=== PATIENT | female | born 1990 | race Two or more races ===

== ENCOUNTER 2023-09-07 18:08 | Emergency (ER) | payer MEDICAID, OTHER ==
[~2023-09-07] VITALS: Ht 170.2 cm; Wt 106.1 kg
[2023-09-07 18:10] VITALS: BP 153/88; PULSE 63; RESP 18; TEMP 97.6
[2023-09-07 19:00] VITALS: O2SAT 98
[2023-09-07] MEDS ORDERED: FAMOTIDINE 20 MG TAB PO ONE (19:00)
[2023-09-07] MEDS ORDERED: diphenhdrAMINE HCL 50 MG/1 ML VL IM ONE (19:00)
[2023-09-07] MEDS ORDERED: DexAMETHasone SOD PHOS 10MG/1ML VIAL INJ IM ONE (19:00)
[2023-09-07] MEDS ORDERED: EPINEPHrine HCL 1 MG/1 ML AMP IM ONE (19:45)
[2023-09-07] MEDS ORDERED: PRED20TA2 PO (21:20)
[2023-09-07] MEDS ORDERED: FAMO20TA10 PO (21:20)
[2023-09-07] MEDS ORDERED: DIPH25CA66 PO (21:20)
[2023-09-08] MEDS ORDERED: CEPH250C PO (20:00)
== END 2023-09-07 22:05 | disposition home or self-care (01) ==
LOC: ER 18:08
DX: T78.49XA Other allergy, initial encounter (principal); Z88.8 Allergy status to other drugs, medicaments and biological substances; X58.XXXA Exposure to other specified factors, initial encounter
CPT/HCPCS: 96372; 99284; J0171; J1100; J1200

== ENCOUNTER 2023-09-08 12:19 | Emergency (ER) | payer MEDICAID ==
[~2023-09-08] VITALS: Ht 157.5 cm; Wt 100.0 kg
[~2023-09-08 12:19] MED LIST: DIPH25CA66 PO; FAMO20TA10 PO; PRED20TA2 PO
[2023-09-08 13:07] VITALS: PULSE 77; RESP 12; O2SAT 100
[2023-09-08] MEDS ORDERED: KETOROLAC TROMETH 30 MG/ML 1ML VIAL IV ONE ×2 (13:30→20:15)
[2023-09-08] MEDS ORDERED: SODIUM CHLORIDE 0.9% 1,000 ML IVB ONE (13:30)
[2023-09-08] MEDS ORDERED: ONDANSETRON HCL 4 MG/2 ML VIAL IV ONE (13:30)
[2023-09-08 13:53] LABS: Basophils # (auto) 0 10 ^3/uL (0-0.2); Eosinophils # (auto) 0 10 ^3/uL (0-0.8); Hemoglobin 13.3 g/dL (12.2-16.2); Lymphocytes # (auto) 1.5 10 ^3/uL (0.4-5.4); Monocytes # (auto) 0.3 10 ^3/uL (0-1.3); Nucleated Red Blood Cells % 0.1 %
[2023-09-08 13:55] LABS: Basophils % (auto) 0.1 % (0.0-2.0); Hematocrit 40.2 % (36.0-46.0); Lymphocytes % (auto) 13.8 % (10.0-50.0); Mean Corpuscular Hgb Conc. 32.9 g/dL (32.0-36.0); Mean Corpuscular Volume 78.8 fL (80.0-100.0); Monocytes % (auto) 2.9 % (0.0-12.0); Neutrophils % (auto) 83.2 % (37.0-80.0); Red Blood Cells 5.11 10^6/uL (4.0-5.20); Red Cell Distribution Width 13.3 % (11.8-14.3); White Blood Cell 10.8 10^3/uL (4.4-10.8)
[2023-09-08 14:37] LABS: Alanine Aminotransferase 15 U/L (7-40); Albumin 4.7 g/dL (3.2-4.8); Alkaline Phosphatase 62 U/L (46-116); Anion Gap 11 (5-15); Aspartate Aminotransferase 14 U/L (13-40); BUN/Creatinine Ratio 11.6 (10.0-20.0); Bilirubin, Total 0.8 mg/dL (0.2-1.0); Blood Urea Nitrogen 10 mg/dL (9-23); Calcium 9.3 mg/dL (8.7-10.4); Carbon Dioxide 20 mmol/L (20-30); Chloride 107 mmol/L (98-107); Glucose 89 mg/dL (74-106); Magnesium 2.1 mg/dL (1.6-2.6); Potassium 3.9 mmol/L (3.5-5.1); Sodium 138 mmol/L (136-145); Total Protein 7.9 g/dL (5.7-8.2)
[2023-09-08] MEDS ORDERED: HYDROcodone-ACET 5/325MG TAB PO ONE (15:15)
[2023-09-08 19:40] VITALS: RESP 19; O2SAT 98
[2023-09-08 19:44] LABS: Urine Bacteria FEW /hpf (None Seen); Urine Blood 2+ /uL (Negative); Urine Clarity HAZY (Clear); Urine Color Yellow (Yellow); Urine Mucus FEW (None Seen); Urine Protein, UAD TRACE (Negative); Urine Urobilinogen Normal (Negative); Urine WBC 205 /hpf (0 - 5); Urine pH 5.5 (5.0-8.0)
[2023-09-08] MEDS ORDERED: CEPH250C PO (20:00)
[2023-09-08] MEDS ORDERED: cefTRIAXone 1GM/50ML D5W 50 ML IV ONE (20:15)
[2023-09-08] MEDS ORDERED: cefTRIAXone W LIDOCAINE 1 GM IM IM ONE (20:15)
[2023-09-08 21:21] VITALS: PULSE 77; RESP 20; O2SAT 98
== END 2023-09-08 21:25 | disposition home or self-care (01) ==
LOC: ER 12:19 → EEVIPCON 12:19 → ER 21:25
DX: R55 Syncope and collapse (principal); R10.2 Pelvic and perineal pain; N39.0 Urinary tract infection, site not specified; R51.9 Headache, unspecified; M25.511 Pain in right shoulder; M54.6 Pain in thoracic spine; M79.601 Pain in right arm; Z79.899 Other long term (current) drug therapy; Z88.8 Allergy status to other drugs, medicaments and biological substances; W18.39XA Other fall on same level, initial encounter; Y93.89 Activity, other specified; Y92.89 Other specified places as the place of occurrence of the external cause; Y99.8 Other external cause status
CPT/HCPCS: 36415; 70450; 72125; 73030; 80053; 81001; 82962; 83735; 84702; 85025; 93005; 96361; 96365; 96375; 96376; 99285; J0696; J1885; J2405

== ENCOUNTER 2024-06-12 22:58 | Emergency (ER) | payer MEDICAID ==
[~2024-06-12] VITALS: Ht 157.5 cm; Wt 115.9 kg
[~2024-06-12 22:58] MED LIST changes: +CEPH250C PO
[2024-06-12] MEDS ORDERED: LORazepam 2MG/ML-1ML VIAL IV ONE (23:15)
[2024-06-13 00:41] LABS: Basophils # (auto) 0.1 10 ^3/uL (0-0.2); Basophils % (auto) 0.6 % (0.0-2.0); Eosinophils # (auto) 0.2 10 ^3/uL (0-0.8); Eosinophils % (auto) 1.4 % (0.0-7.0); Hematocrit 36.7 % (36.0-46.0); Hemoglobin 12.6 g/dL (12.2-16.2); Mean Corpuscular Hemoglobin 26.6 pg (28.0-32.0); Mean Corpuscular Hgb Conc. 34.3 g/dL (32.0-36.0); Mean Corpuscular Volume 77.6 fL (80.0-100.0); Monocytes # (auto) 0.5 10 ^3/uL (0-1.3); Monocytes % (auto) 4.2 % (0.0-12.0); Neutrophils # (auto) 8.4 10 ^3/uL (1.6-8.6); Neutrophils % (auto) 75.8 % (37.0-80.0); Platelet Count (auto) 372 10^3/uL (140-450); Red Blood Cells 4.73 10^6/uL (4.0-5.20); Red Cell Distribution Width 14.6 % (11.8-14.3); White Blood Cell 11.1 10^3/uL (4.4-10.8)
[2024-06-13 00:56] LABS: Alanine Aminotransferase 50 U/L (7-40); Albumin 4.4 g/dL (3.2-4.8); Alkaline Phosphatase 65 U/L (46-116); Anion Gap 10 (5-15); Aspartate Aminotransferase 27 U/L (13-40); BUN/Creatinine Ratio 10.4 (10.0-20.0); Bilirubin, Total 1.1 mg/dL (0.2-1.0); Blood Urea Nitrogen 10 mg/dL (9-23); Calcium 9.1 mg/dL (8.7-10.4); Carbon Dioxide 21 mmol/L (20-30); Chloride 105 mmol/L (98-107); Glucose 96 mg/dL (74-106); Potassium 3.6 mmol/L (3.5-5.1); Sodium 136 mmol/L (136-145)
[2024-06-13 00:57] LABS: Total Protein 7.5 g/dL (5.7-8.2)
[2024-06-13] MEDS ORDERED: LORA-655 PO (01:19)
[2024-06-13 02:40] VITALS: BP 140/90; PULSE 90; RESP 20; TEMP 98; O2SAT 95
== END 2024-06-13 02:50 | disposition home or self-care (01) ==
LOC: ER 22:58 → EDBD 22:58 → ER 06-13 02:50
DX: F41.9 Anxiety disorder, unspecified (principal); Z85.9 Personal history of malignant neoplasm, unspecified; Z79.899 Other long term (current) drug therapy; Z88.8 Allergy status to other drugs, medicaments and biological substances
CPT/HCPCS: 36415; 80053; 85025

== ENCOUNTER 2025-03-02 19:18 | Emergency (ER) | payer BC, MEDICAID ==
[~2025-03-02] VITALS: Ht 160 cm; Wt 96.0 kg
[~2025-03-02 19:18] MED LIST changes: +LORA-655 PO
[2025-03-02] MEDS ORDERED: diphenhdrAMINE HCL 50 MG/1 ML VL IV ONE (19:45)
[2025-03-02] MEDS ORDERED: DexAMETHasone SOD PHOS 10MG/1ML VIAL INJ IV ONE (19:45)
[2025-03-02] MEDS ORDERED: KETOROLAC TROMETH 30 MG/ML 1ML VIAL IV ONE (19:45)
[2025-03-02] MEDS ORDERED: METOCLOPRAMIDE HCL 5MG/ml INJ 2ml VIAL IV ONE (19:45)
--- NOTE | 2025-03-02 19:57 | ED.PDOC ---
History of Present Illness HPI Comments 34 year old female presents to the ED with a prior Hx of Migraines associated to the c/c of a Migraine. Pt states that her Migraine has been onset for the last 3x days with no alleviating factors at this time. Pt states it feels as if "someone is punching my temples". Pt notes that she is very sensitive to light and cannot keep any food down at this time. Pt has a PMHx of Anxiety and Depression. Pt denies any other associated symptoms, modifiers, recent injuries or sick contacts present at this time. Time Seen by MD: 19:40 Primary Care Provider: NONE Reviewed Notes: Nurses Notes, Medications, Allergies Allergies: Coded Allergies: Nalbuphine (Verified Allergy, Unknown, 09/07/23) Promethazine (Verified Allergy, Unknown, 09/07/23) Home Meds Active Scripts Promethazine HCl (Promethazine Hydrochlorid) 25 Mg Tab, 25 MG PO Q6HP PRN, #30 TAB Prov:RAVI MORALES MD 03/02/25 Gabapentin (Once-Daily) (Gabapentin) 300 Mg Tab, 300 MG PO Q6HP PRN, #60 TAB Prov:RAVI MORALES MD 03/02/25 Lorazepam (Ativan) 0.5 Mg Tab, 1 TAB PO BID PRN, #12 TAB Prov:NATASHA PINEDA 06/13/24 Cephalexin (KEFLEX CAPSULE) 250 Mg Cp, 2 CAP PO TID, #28 CAP Prov:KARL ROBERTO MD 09/08/23 Famotidine (PEPCID TABLET) 20 Mg Tb, 1 TAB PO BID for 10 Days, #20 TAB Prov:MELISSA LEE [employer] REPRESENTATIVE 09/07/23 Prednisone (Prednisone) 20 Mg Tab, 1 TAB PO DAILY for 5 Days, #5 TAB start tomorrow with food Prov:MELISSA LEE Q [employer] REPRESENTATIVE 09/07/23 Diphenhydramine Hcl (Benadryl Allergy) 25 Mg Cap, 1 CAP PO Q8HR, #30 CAP 1 Refill as needed for allergy sx Prov:MELISSA LEE [employer] REPRESENTATIVE 09/07/23 Information Source: Patient Mode of Arrival: Ambulatory Severity: Moderate Timing: Days Duration: Since onset Prehospital treatment: None Past Medical History PAST MEDICAL HISTORY: Cancer Surgical History: Denies all surgeries GRAVITY PROSPECTOR History: No Pertinent GRAVITY PROSPECTOR History Family History Family History: Unknown Social History Smoker: Non-Smoker Alcohol: Denies ETOH Use Drugs: Denies Drug Use Lives In: Home Constitutional: denies: chills, diaphoresis, fatigue, fever, malaise, sweats, weakness, others EENTM: reports: blurred vision; denies: double vision, ear bleeding, ear discharge, ear drainage, ear pain, ear ringing, eye pain, eye redness, hearing loss, mouth pain, mouth swelling, nasal discharge, nose bleeding, nose congestion, nose pain, photophobia, tearing, throat pain, throat swelling, voice changes, others Respiratory: denies: cough, hemoptysis, orthopnea, SOB at rest, shortness of breath, SOB with excertion, stridor, wheezing, others Cardiovascular: denies: chest pain, dizzy spells, diaphoresis, Dyspnea on exertion, edema, irregular heart beat, left arm pain, lightheadedness, palpitations, PND, syncope, others Gastrointestinal: denies: abdomen distended, abdominal pain, blood streaked bowels, constipated, diarrhea, dysphagia, difficulty swallowing, hematemesis, melena, nausea, poor appetite, poor fluid intake, rectal bleeding, rectal pain, vomiting, others Genitourinary: denies: abnormal vagina bleeding, burning, dyspareunia, dysuria, flank pain, frequency, hematuria, incontinence, pain, , vagina discharge, urgency, others Neurological: reports: headache, others (tunnel vision); denies: dizziness, fainting, left sided numbness, left sided weakness, numbness, paresthesia, pre- existing deficit, right sided numbness, right sided weakness, seizure, speech problems, tingling, tremors, weakness Musculoskeletal: denies: back pain, gout, joint pain, joint swelling, muscle pain, muscle stiffness, neck pain, others Integumetry: denies: bruises, change in color, change in hair/nails, dryness, laceration, lesions, lumps, rash, wounds, others Allergic/Immunocompromised: denies: Difficulty Healing, Frequent Infections, Hives, Itching, others Hematologic/Lymphatic: denies: anemia, blood clots, easy bleeding, easy bruising, swollen glands, others Endocrine: denies: excessive hunger, excessive sweating, excessive thirst, excessive urination, flushing, intolerance to cold, intolerance to heat, unexpl ained weight gain, unexplained weight loss, others Psychiatric: denies: anxiety, bipolar disorder, depression, hopeless, panic disorder, schizophrenia, sleepless, suicidal, others All Other Systems: Reviewed and Negative Physical Exam General Appearance: Moderate Distress, Obese HEENT: Normal ENT Inspection Neck: Full Range of Motion, Normal Respiratory: Lungs Clear, Normal Breath Sounds Cardiovascular: No Murmur, Normal Peripheral Pulses, Regular Rate/Rhythm Breast Exam: Deferred Gastrointestinal: Non Tender, Soft Genitalia: Deferred Pelvic: Deferred Rectal: Deferred Extremities: No calf tenderness, Normal range of motion, Non-tender Musculoskeletal : Apperance: Normal Neurologic: Alert, Headache, Normal Affect, Normal Mood Cerebellar Function: Normal Reflexes: Normal Skin: Dry, Normal Color, Warm Lymphatic: No Adenopathy Was a procedure done? Was a procedure done?: No Differential Dx Considerations may include: Differential diagnosis includes but not limited to: Migraine, tension headache, intracranial hemorrhage, subarachnoid hemorrhage, cluster headache, meningitis and others X-Ray, Labs, Meds, VS Vital Signs Date Time Temp Pulse Resp B/P (MAP) Pulse Ox O2 Delivery O2 Flow Rate FiO2 03/03/25 01:27 Room Air* 0 21 03/03/25 00:52 98.5 50 16 118/83 (95) 97 98.5 03/02/25 20:27 97.5 62 16 130/70 (90) 95 97.5 Current Medications Medications (Trade) Dose Ordered Sig/[place] Route Start Time Stop Time Status Last Admin Ketorolac Tromethamine (Toradol Injection) 30 mg ONCE ONCE IM 03/03/25 01:00 03/03/25 01:01 DC 03/03/25 01:00 Dexamethasone Sodium Phosphate (Decadron Injection) 10 mg ONCE ONCE IM 03/03/25 01:00 03/03/25 01:01 DC 03/03/25 01:00 Diphenhydramine HCl (Benadryl Injection) 50 mg ONCE ONCE IM 03/03/25 01:00 03/03/25 01:01 DC 03/03/25 00:59 Metoclopramide HCl (Reglan Injection) 10 mg ONCE ONCE IM 03/03/25 01:00 03/03/25 01:01 DC 03/03/25 01:00 Time of 1ST Reevaluation: 20:10 Reevaluation 1ST: Unchanged Patient Education/Counseling: Diagnosis, Treatment Family Education/Counseling: Diagnosis, Treatment Departure 1 Departure Time of Disposition: 21:30 Impression: Primary Impression: Migraine Disposition: 01 HOME / SELF CARE / HOMELESS Condition: Stable e-Prescriptions Promethazine HCl (Promethazine Hydrochlorid) 25 Mg Tab 25 MG PO Q6HP PRN, #30 TAB Prov: RAVI MORALES MD 03/02/25 Gabapentin (Once-Daily) (Gabapentin) 300 Mg Tab 300 MG PO Q6HP PRN, #60 TAB Prov: RAVI MORALES MD 03/02/25 Discharged With: Self Critical Care Note Critical Care Time?: No Stability Stability form required: No I personally scribed for RAVI MORALES MD ([email or web address]) on 03/02/25 at 19:57. Electronically submitted by Nghia Crow ([email or web address]). RAVI MORALES MD March 02, 2025 19:57
[2025-03-02] MEDS ORDERED: PROM25TA21 PO (20:19)
[2025-03-02] MEDS ORDERED: GABA300T4 PO (20:19)
[2025-03-03 00:52] VITALS: BP 118/83; PULSE 50; RESP 16; TEMP 98.5; O2SAT 97
[2025-03-03] MEDS: diphenhdrAMINE HCL 50 MG/1 ML VL IM ONE (00:59)
[2025-03-03] MEDS: KETOROLAC TROMETH 30 MG/ML 1ML VIAL IM ONE (01:00)
[2025-03-03] MEDS: DexAMETHasone SOD PHOS 10MG/1ML VIAL INJ IM ONE (01:00)
[2025-03-03] MEDS: METOCLOPRAMIDE HCL 5MG/ml INJ 2ml VIAL IM ONE (01:00)
== END 2025-03-03 01:32 | disposition home or self-care (01) ==
LOC: EEVIPCON 19:18 → ER 19:18
DX: G43.909 Migraine, unspecified, not intractable, without status migrainosus (principal); F41.9 Anxiety disorder, unspecified; Z79.52 Long term (current) use of systemic steroids; Z79.899 Other long term (current) drug therapy; Z88.8 Allergy status to other drugs, medicaments and biological substances
CPT/HCPCS: 96372; 99284; J1100; J1200; J1885; J2765